=== PATIENT | female | born 1970 | race Caucasian/White ===

== ENCOUNTER 2018-05-17 10:04 | Day surgery (SDC) | payer SELFPAY ==
[2018-05-17] MEDS ORDERED: ONDANSETRON 4 MG/2 ML VIAL IVPUSH PRN (10:33)
[2018-05-17] MEDS ORDERED: HEPARIN NA (PORCINE) 5,000 UNITS/ML 1ML VIAL ONE (10:34)
[2018-05-17] MEDS ORDERED: BACITRACIN 15 GM TUBE TOPICAL OINTMENT ONE (10:43)
[2018-05-17] MEDS ORDERED: LIDOCAINE 1%/EPI 1:100000 (20 ML MULTI DOSE VIAL) ONE (10:43)
[2018-05-17] MEDS ORDERED: LACTATED RINGERS SOLUTION 1,000 ML IV SCH ×2 (10:45→13:30)
[2018-05-17 10:59] VITALS: BMI 33.9
[2018-05-17] MEDS ORDERED: ONDANSETRON 4 MG/2 ML VIAL IVPB PRN (13:26)
[2018-05-17] MEDS ORDERED: oxyCODONE HCL 5 MG TABLET PO PRN ×2 (13:26)
--- NOTE | 2018-05-17 13:30 | OP ---
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
[2018-05-17] MEDS ORDERED: oxyCODONE HCL 5 MG TABLET ONE (15:14)
[2018-05-17 15:49] VITALS: TEMP 98
[2018-05-17] MEDS ORDERED: oxyCODONE HCL 5 MG TABLET PO ONE (15:53)
[2018-05-17 19:14] VITALS: BP 96/58; PULSE 75
--- NOTE | 2018-05-18 14:49 | OP ---
DATE OF OPERATION: 05/17/2018 TITLE OF PROCEDURE: Back liposuction. PREOPERATIVE DIAGNOSIS: Back lipodystrophy. POSTOPERATIVE DIAGNOSIS: Back lipodystrophy. ATTENDING SURGEON: Richy Herrmann MD ASSISTANTS: None. ANESTHESIA: General endotracheal. Patient is marked in the holding area, awake and aware of all incisions, resulting scars, planned areas of liposuction. She is also aware of the risks, benefits, alternatives, and limitations of the operation; understands and agrees to proceed. Patient is brought to the operating room. Sequential compression stockings and JAMES hose are applied. She is intubated, and then, with all appropriate positioning aids and position carefully checked by surgical and anesthesia teams, she is placed in a prone position. All pressure points are carefully padded. The patient is then prepped and draped in standard surgical fashion. A timeout is called. Patient, procedure, sites, and sides are verified. The infiltration of wetting solution is also verified as a liter of normal saline with 1 ampule of 1:1000 epinephrine and 20 mL of 1% lidocaine plain per liter. A total of 2.4 L are infiltrated using a standard infiltrating system. A full 25 minutes is awaited prior to any liposuction. The SAFE technique of liposuction with pre- and post-tunneling is performed. The pre-tunneling and post-tunneling are wide of the areas of prepared liposuction. After completion of the tunneling, liposuction is performed with a combination of 4- and 5-mm cannulas using a power-assisted MicroAire system. The total lipoaspirate is 2300 mL, 1200 being from the left back and 1100 from the right back. The endpoint is smooth, even contour and the appearance of bloody fluid in the lipoaspirate. At this point, the post-tunneling is then performed using a 4-mm basket-tip cannula without suction, and closure of the liposuction holes is performed with a series of interrupted, 4-0 nylon suture. A compressive dressing is applied to the back and the upper abdomen. Patient is then transferred to a supine position where she is extubated, transferred to Recovery without complication. Zarina SORENSEN/[id number]
== END 2018-05-17 19:00 | disposition home or self-care (01) ==
LOC: FASU 10:04
PROVIDERS: ATTEND Plastic Surgery
PROC: 0J073ZZ Alteration of Back Subcutaneous Tissue and Fascia, Percutaneous Approach (ICD-10-PCS; principal; 2018-05-17 11:30)
DX: E88.1 Lipodystrophy, not elsewhere classified (principal)
CPT/HCPCS: 84703; 94760; J1644